=== PATIENT | male | born 1945 ===

== ENCOUNTER 2019-12-03 08:56 | Outpatient (REF) | payer OTHER, SELFPAY ==
[2019-12-03 09:07] LABS: Abs Immature Grans 0.06 10^3/uL (0.0-0.06); Absolute Basophil Count 0.01 10^3/uL (0.0-0.2); Absolute Eosinophil Count 0.07 10^3/uL (0.0-0.7); Absolute Lymphocyte Count 0.44 10^3/uL (1.2-3.4); Absolute Monocyte Count 0.49 10^3/uL (0.1-0.8); Absolute Neutrophil Count 4.68 10^3/uL (1.2-6.7); Basophils % 0.2; Eosinophils % 1.2; HCT 31.7 % (40.0-50.0); Lymphocytes % 7.7; MCH 29.2 pg (27.0-33.0); MCHC 31.5 % (32.0-36.0); MCV 92.7 fL (80-95); MPV 10.4 fL (8.0-11.0); Monocytes % 8.5; Neutrophils % 81.4; Nucleated RBC 0 %; Platelet Count 255 10^3/uL (130-400); RBC 3.42 10^6/uL (4.36-5.78); RDW 16.6 % (11.8-14.1); RDW-SD 55.4 fL; WBC 5.75 10^3/uL (4.4-10.8)
[2019-12-03 09:22] LABS: ALT 32 U/L (16-63); AST 56 U/L (15-37); Albumin 2.7 g/dL (3.4-5.0); Alkaline Phosphatase 192 U/L (46-116); Anion Gap 11.8 mmol/L (3-11); BUN 17 mg/dL (7-18); Bilirubin, Total 0.3 mg/dL (0.2-1.0); CO2 27.2 mmol/L (21.0-32.0); CREATININE 1.02 mg/dL (0.70-1.30); Calcium 9.4 mg/dL (8.5-10.1); Chloride 101 mmol/L (98-107); Glucose 116 mg/dL (74-106); Potassium 4.3 mmol/L (3.5-5.1); Sodium 140 mmol/L (136-145); Total Protein 7.1 g/dL (6.4-8.2)
== END 2019-12-03 09:16 ==
LOC: LBN 08:56
PROVIDERS: PCP Internal Medicine Medical Oncology; Visit Provider Internal Medicine Medical Oncology
DX: C34.12 Malignant neoplasm of upper lobe, left bronchus or lung (principal)
CPT/HCPCS: 80053; 85025

== ENCOUNTER 2019-12-16 04:52 | Outpatient (CLI) | payer OTHER, SELFPAY ==
[2019-12-16 10:49] LABS: Abs Immature Grans 0.04 10^3/uL (0.0-0.06); Absolute Basophil Count 0.02 10^3/uL (0.0-0.2); Absolute Eosinophil Count 0.16 10^3/uL (0.0-0.7); Absolute Lymphocyte Count 0.49 10^3/uL (1.2-3.4); Absolute Monocyte Count 0.46 10^3/uL (0.1-0.8); Absolute Neutrophil Count 4.57 10^3/uL (1.2-6.7); Basophils % 0.3; Eosinophils % 2.8; HCT 33.7 % (40.0-50.0); HGB 10.3 g/dL (13.5-17.5); Immature Grans % 0.7; Lymphocytes % 8.5; MCH 29.3 pg (27.0-33.0); MCHC 30.6 % (32.0-36.0); MPV 8.9 fL (8.0-11.0); Neutrophils % 79.7; Nucleated RBC 0 %; Platelet Count 189 10^3/uL (130-400); RBC 3.51 10^6/uL (4.36-5.78); RDW 18.8 % (11.8-14.1); RDW-SD 64.3 fL; WBC 5.74 10^3/uL (4.4-10.8)
[2019-12-16 11:11] LABS: ALT 22 U/L (16-63); AST 28 U/L (15-37); Alkaline Phosphatase 120 U/L (46-116); Anion Gap 8.3 mmol/L (3-11); BUN 13 mg/dL (7-18); Bilirubin, Total 0.2 mg/dL (0.2-1.0); CO2 30.7 mmol/L (21.0-32.0); CREATININE 0.86 mg/dL (0.70-1.30); Calcium 8.1 mg/dL (8.5-10.1); Chloride 106 mmol/L (98-107); FREE T4 1.18 ng/dL (0.76-1.46); Glucose 108 mg/dL (74-106); Magnesium 1.3 mg/dL (1.8-2.4); Potassium 3.8 mmol/L (3.5-5.1); Sodium 145 mmol/L (136-145); Total Protein 6.7 g/dL (6.4-8.2)
== END 2019-12-16 05:12 ==
PROVIDERS: PCP Internal Medicine Medical Oncology; Visit Provider Internal Medicine Medical Oncology
DX: C78.7 Secondary malignant neoplasm of liver and intrahepatic bile duct (principal)
CPT/HCPCS: 36415; 80053; 83735; 84439; 84443; 85025

== ENCOUNTER 2019-12-24 04:48 | Outpatient (CLI) | payer OTHER, SELFPAY ==
[2019-12-24 09:31] LABS: Abs Immature Grans 0.02 10^3/uL (0.0-0.06); Absolute Basophil Count 0.01 10^3/uL (0.0-0.2); Absolute Eosinophil Count 0.03 10^3/uL (0.0-0.7); Absolute Monocyte Count 0.36 10^3/uL (0.1-0.8); Basophils % 0.3; HCT 30.5 % (40.0-50.0); HGB 9.5 g/dL (13.5-17.5); Immature Grans % 0.7; Lymphocytes % 23.2; MCH 29.7 pg (27.0-33.0); MCHC 31.1 % (32.0-36.0); MCV 95.3 fL (80-95); MPV 10.1 fL (8.0-11.0); Monocytes % 11.9; Neutrophils % 62.9; Nucleated RBC 0 %; Platelet Count 165 10^3/uL (130-400); RDW-SD 61.7 fL; WBC 3.02 10^3/uL (4.4-10.8)
[2019-12-24 09:57] LABS: ALT 18 U/L (16-63); AST 25 U/L (15-37); Albumin 3.2 g/dL (3.4-5.0); Alkaline Phosphatase 84 U/L (46-116); BUN 15 mg/dL (7-18); Bilirubin, Total 0.3 mg/dL (0.2-1.0); CREATININE 0.85 mg/dL (0.70-1.30); Chloride 102 mmol/L (98-107); FREE T4 1.32 ng/dL (0.76-1.46); Glucose 107 mg/dL (74-106); Magnesium 1.5 mg/dL (1.8-2.4); Potassium 4.1 mmol/L (3.5-5.1); Sodium 140 mmol/L (136-145); TSH 1.63 uIU/mL (0.36-3.74); Total Protein 6.2 g/dL (6.4-8.2)
== END 2019-12-24 05:08 ==
PROVIDERS: PCP Internal Medicine Medical Oncology; Visit Provider Internal Medicine Medical Oncology
DX: C78.7 Secondary malignant neoplasm of liver and intrahepatic bile duct (principal)
CPT/HCPCS: 80053; 83735; 84439; 84443; 85025

== ENCOUNTER 2020-01-06 02:00 | Outpatient (CLI) | payer OTHER, SELFPAY ==
[2020-01-06 08:40] LABS: Abs Immature Grans 0.02 10^3/uL (0.0-0.06); Absolute Basophil Count 0.01 10^3/uL (0.0-0.2); Absolute Eosinophil Count 0.03 10^3/uL (0.0-0.7); Absolute Lymphocyte Count 0.58 10^3/uL (1.2-3.4); Absolute Monocyte Count 0.63 10^3/uL (0.1-0.8); Absolute Neutrophil Count 1.94 10^3/uL (1.2-6.7); Basophils % 0.3; Eosinophils % 0.9; HCT 31.7 % (40.0-50.0); HGB 9.8 g/dL (13.5-17.5); Immature Grans % 0.6; Lymphocytes % 18.1; MCH 29.7 pg (27.0-33.0); MCHC 30.9 % (32.0-36.0); MCV 96.1 fL (80-95); MPV 9.4 fL (8.0-11.0); Monocytes % 19.6; Neutrophils % 60.5; Nucleated RBC 0 %; RDW 20.4 % (11.8-14.1); RDW-SD 70.3 fL; WBC 3.21 10^3/uL (4.4-10.8)
[2020-01-06 08:58] LABS: ALT 25 U/L (16-63); AST 25 U/L (15-37); Albumin 3.1 g/dL (3.4-5.0); Alkaline Phosphatase 86 U/L (46-116); Anion Gap 8.7 mmol/L (3-11); BUN 12 mg/dL (7-18); Bilirubin, Total 0.3 mg/dL (0.2-1.0); CO2 29.3 mmol/L (21.0-32.0); CREATININE 0.75 mg/dL (0.70-1.30); Calcium 8.1 mg/dL (8.5-10.1); Chloride 105 mmol/L (98-107); FREE T4 1.29 ng/dL (0.76-1.46); Glucose 106 mg/dL (74-106); Magnesium 1.6 mg/dL (1.8-2.4); Potassium 3.4 mmol/L (3.5-5.1); Sodium 143 mmol/L (136-145); TSH 1.85 uIU/mL (0.36-3.74); Total Protein 6.5 g/dL (6.4-8.2)
[2020-01-06 09:21] LABS: Anisocytosis 2+; Diff Comment Diff Reviewed; Platelet Count 165 10^3/uL (130-400); Polychromasia Present
[2020-01-06 09:22] LABS: Poikilocytes 2+
== END 2020-01-06 02:20 ==
PROVIDERS: PCP Internal Medicine Medical Oncology; Visit Provider Internal Medicine Medical Oncology
DX: C78.7 Secondary malignant neoplasm of liver and intrahepatic bile duct (principal)
CPT/HCPCS: 36415; 80053; 83735; 84439; 84443; 85025

== ENCOUNTER 2020-01-13 02:37 | Outpatient (CLI) | payer OTHER, SELFPAY ==
[2020-01-13 07:35] LABS: Abs Immature Grans 0.01 10^3/uL (0.0-0.06); Absolute Basophil Count 0.02 10^3/uL (0.0-0.2); Absolute Eosinophil Count 0.01 10^3/uL (0.0-0.7); Absolute Lymphocyte Count 0.71 10^3/uL (1.2-3.4); Basophils % 0.6; Eosinophils % 0.3; HCT 28.4 % (40.0-50.0); Immature Grans % 0.3; Lymphocytes % 21.8; MCH 29.6 pg (27.0-33.0); MCHC 31.7 % (32.0-36.0); MCV 93.4 fL (80-95); MPV 9.8 fL (8.0-11.0); Monocytes % 9.2; Neutrophils % 67.8; Nucleated RBC 0 %; Platelet Count 174 10^3/uL (130-400); RBC 3.04 10^6/uL (4.36-5.78); RDW 19.7 % (11.8-14.1); RDW-SD 66.6 fL; WBC 3.25 10^3/uL (4.4-10.8)
[2020-01-13 07:52] LABS: ALT 21 U/L (16-63); AST 25 U/L (15-37); Albumin 3.3 g/dL (3.4-5.0); Alkaline Phosphatase 73 U/L (46-116); Anion Gap 4.5 mmol/L (3-11); BUN 18 mg/dL (7-18); Bilirubin, Total 0.4 mg/dL (0.2-1.0); CO2 32.5 mmol/L (21.0-32.0); Calcium 9.1 mg/dL (8.5-10.1); Chloride 103 mmol/L (98-107); FREE T4 1.28 ng/dL (0.76-1.46); Glucose 106 mg/dL (74-106); Magnesium 1.6 mg/dL (1.8-2.4); Potassium 4.8 mmol/L (3.5-5.1); Sodium 140 mmol/L (136-145); TSH 2.31 uIU/mL (0.36-3.74); Total Protein 6.7 g/dL (6.4-8.2)
== END 2020-01-13 02:57 ==
PROVIDERS: PCP Internal Medicine Medical Oncology; Visit Provider Internal Medicine Medical Oncology
DX: C78.7 Secondary malignant neoplasm of liver and intrahepatic bile duct (principal); Z79.899 Other long term (current) drug therapy
CPT/HCPCS: 80053; 83735; 84439; 84443; 85025

== ENCOUNTER 2020-01-27 01:30 | Outpatient (CLI) | payer OTHER, SELFPAY ==
[2020-01-27 08:23] LABS: Abs Immature Grans 0.02 10^3/uL (0.0-0.06); Absolute Basophil Count 0.01 10^3/uL (0.0-0.2); Absolute Eosinophil Count 0.01 10^3/uL (0.0-0.7); Absolute Lymphocyte Count 0.63 10^3/uL (1.2-3.4); Absolute Monocyte Count 0.79 10^3/uL (0.1-0.8); Basophils % 0.3; Eosinophils % 0.3; HCT 29.2 % (40.0-50.0); HGB 9.2 g/dL (13.5-17.5); Immature Grans % 0.6; Lymphocytes % 17.7; MCH 30.9 pg (27.0-33.0); MCHC 31.5 % (32.0-36.0); MPV 9.1 fL (8.0-11.0); Monocytes % 22.2; Neutrophils % 58.9; Nucleated RBC 0 %; Platelet Count 133 10^3/uL (130-400); RBC 2.98 10^6/uL (4.36-5.78); WBC 3.56 10^3/uL (4.4-10.8)
[2020-01-27 08:48] LABS: ALT 18 U/L (16-63); AST 22 U/L (15-37); Albumin 3.3 g/dL (3.4-5.0); Alkaline Phosphatase 74 U/L (46-116); Anion Gap 10.7 mmol/L (3-11); BUN 14 mg/dL (7-18); Bilirubin, Total 0.3 mg/dL (0.2-1.0); CO2 29.3 mmol/L (21.0-32.0); Calcium 8.5 mg/dL (8.5-10.1); Chloride 104 mmol/L (98-107); FREE T4 1.45 ng/dL (0.76-1.46); Glucose 104 mg/dL (74-106); Magnesium 1.7 mg/dL (1.8-2.4); Potassium 3.9 mmol/L (3.5-5.1); Sodium 144 mmol/L (136-145); TSH 1.97 uIU/mL (0.36-3.74); Total Protein 6.9 g/dL (6.4-8.2)
== END 2020-01-27 01:50 ==
PROVIDERS: PCP Internal Medicine Medical Oncology; Visit Provider Internal Medicine Medical Oncology
DX: C78.7 Secondary malignant neoplasm of liver and intrahepatic bile duct (principal)
CPT/HCPCS: 36415; 80053; 83735; 84439; 84443; 85025

== ENCOUNTER 2020-02-03 07:12 | Outpatient (CLI) | payer OTHER, SELFPAY ==
[2020-02-03 07:26] LABS: Abs Immature Grans 0.02 10^3/uL (0.0-0.06); Absolute Basophil Count 0.01 10^3/uL (0.0-0.2); Absolute Lymphocyte Count 0.71 10^3/uL (1.2-3.4); Absolute Monocyte Count 0.28 10^3/uL (0.1-0.8); Absolute Neutrophil Count 2.51 10^3/uL (1.2-6.7); Basophils % 0.3; HGB 8.8 g/dL (13.5-17.5); Immature Grans % 0.6; Lymphocytes % 20.1; MCH 30.4 pg (27.0-33.0); MCHC 31.4 % (32.0-36.0); MCV 96.9 fL (80-95); MPV 9.4 fL (8.0-11.0); Monocytes % 7.9; Neutrophils % 71.1; Nucleated RBC 0 %; RBC 2.89 10^6/uL (4.36-5.78); RDW-SD 74.5 fL; WBC 3.53 10^3/uL (4.4-10.8)
[2020-02-03 07:38] LABS: Anisocytosis 2+; Basophilic Stippling Present; Diff Comment Diff Reviewed; Hypochromasia 2+; Platelet Count 101 10^3/uL (130-400)
[2020-02-03 07:39] LABS: Poikilocytes 2+
[2020-02-03 07:50] LABS: ALT 14 U/L (16-63); AST 21 U/L (15-37); Albumin 3.3 g/dL (3.4-5.0); Alkaline Phosphatase 79 U/L (46-116); Anion Gap 6.6 mmol/L (3-11); BUN 21 mg/dL (7-18); Bilirubin, Total 0.4 mg/dL (0.2-1.0); CO2 30.4 mmol/L (21.0-32.0); CREATININE 0.95 mg/dL (0.70-1.30); Calcium 8.9 mg/dL (8.5-10.1); Chloride 104 mmol/L (98-107); FREE T4 1.32 ng/dL (0.76-1.46); Glucose 120 mg/dL (74-106); Magnesium 1.6 mg/dL (1.8-2.4); Potassium 4.1 mmol/L (3.5-5.1); Sodium 141 mmol/L (136-145); TSH 1.38 uIU/mL (0.36-3.74); Total Protein 6.6 g/dL (6.4-8.2)
== END 2020-02-03 07:32 ==
PROVIDERS: PCP Internal Medicine Medical Oncology; Visit Provider Internal Medicine Medical Oncology
DX: C78.7 Secondary malignant neoplasm of liver and intrahepatic bile duct (principal); Z79.899 Other long term (current) drug therapy
CPT/HCPCS: 36415; 80053; 83735; 84439; 84443; 85025

== ENCOUNTER 2020-02-17 03:04 | Outpatient (CLI) | payer OTHER, SELFPAY ==
[2020-02-17 08:53] LABS: Abs Immature Grans 0.03 10^3/uL (0.0-0.06); Absolute Basophil Count 0.02 10^3/uL (0.0-0.2); Absolute Eosinophil Count 0.02 10^3/uL (0.0-0.7); Absolute Lymphocyte Count 0.62 10^3/uL (1.2-3.4); Absolute Monocyte Count 0.77 10^3/uL (0.1-0.8); Absolute Neutrophil Count 1.76 10^3/uL (1.2-6.7); Basophils % 0.6; Eosinophils % 0.6; HCT 27.1 % (40.0-50.0); HGB 8.5 g/dL (13.5-17.5); Immature Grans % 0.9; Lymphocytes % 19.3; MCH 31.4 pg (27.0-33.0); MCHC 31.4 % (32.0-36.0); MPV 9.2 fL (8.0-11.0); Monocytes % 23.9; Neutrophils % 54.7; Nucleated RBC 0 %; Platelet Count 140 10^3/uL (130-400); RBC 2.71 10^6/uL (4.36-5.78); RDW 22.5 % (11.8-14.1); WBC 3.22 10^3/uL (4.4-10.8)
[2020-02-17 09:12] LABS: Anisocytosis 2+; Diff Comment RBC Morph Reviewed; Macrocytosis 1+; Microcytosis 1+; Ovalocytes 2+; Polychromasia Present
[2020-02-17 09:20] LABS: ALT 19 U/L (16-63); AST 21 U/L (15-37); Albumin 3.3 g/dL (3.4-5.0); Alkaline Phosphatase 85 U/L (46-116); Anion Gap 5.8 mmol/L (3-11); BUN 19 mg/dL (7-18); Bilirubin, Total 0.3 mg/dL (0.2-1.0); CO2 30.2 mmol/L (21.0-32.0); CREATININE 0.86 mg/dL (0.70-1.30); Calcium 8.7 mg/dL (8.5-10.1); Chloride 107 mmol/L (98-107); Glucose 117 mg/dL (74-106); Magnesium 1.8 mg/dL (1.8-2.4); Potassium 3.9 mmol/L (3.5-5.1); Sodium 143 mmol/L (136-145); TSH 0.91 uIU/mL (0.36-3.74); Total Protein 6.8 g/dL (6.4-8.2)
== END 2020-02-17 03:24 ==
PROVIDERS: PCP Internal Medicine Medical Oncology; Visit Provider Internal Medicine Medical Oncology
DX: C78.7 Secondary malignant neoplasm of liver and intrahepatic bile duct (principal)
CPT/HCPCS: 36415; 80053; 83735; 84443; 85025

== ENCOUNTER 2020-03-16 03:15 | Outpatient (CLI) | payer OTHER, SELFPAY ==
[2020-03-16 09:31] LABS: Abs Immature Grans 0.16 10^3/uL (0.0-0.06); Absolute Basophil Count 0.03 10^3/uL (0.0-0.2); Absolute Eosinophil Count 0.03 10^3/uL (0.0-0.7); Absolute Neutrophil Count 10.81 10^3/uL (1.2-6.7); Basophils % 0.2; Eosinophils % 0.2; HCT 32.5 % (40.0-50.0); Immature Grans % 1.2; Lymphocytes % 7.5; MCH 31.3 pg (27.0-33.0); MCHC 30.8 % (32.0-36.0); MCV 101.9 fL (80-95); MPV 8.8 fL (8.0-11.0); Neutrophils % 80.9; Nucleated RBC 0 %; Platelet Count 274 10^3/uL (130-400); RBC 3.19 10^6/uL (4.36-5.78); RDW 18.2 % (11.8-14.1); WBC 13.36 10^3/uL (4.4-10.8)
[2020-03-16 09:34] LABS: Absolute Monocyte Count 1.34 10^3/uL (0.1-0.8)
[2020-03-16 09:53] LABS: ALT 72 U/L (16-63); AST 64 U/L (15-37); Albumin 3.3 g/dL (3.4-5.0); Alkaline Phosphatase 246 U/L (46-116); Anion Gap 9.3 mmol/L (3-11); BUN 28 mg/dL (7-18); Bilirubin, Total 0.4 mg/dL (0.2-1.0); CO2 28.7 mmol/L (21.0-32.0); CREATININE 1.12 mg/dL (0.70-1.30); Calcium 9.4 mg/dL (8.5-10.1); Chloride 105 mmol/L (98-107); FREE T4 2.02 ng/dL (0.76-1.46); Glucose 118 mg/dL (74-106); Magnesium 1.8 mg/dL (1.8-2.4); Potassium 4.3 mmol/L (3.5-5.1); Sodium 143 mmol/L (136-145); TSH 0.07 uIU/mL (0.36-3.74); Total Protein 7.4 g/dL (6.4-8.2)
== END 2020-03-16 03:35 ==
PROVIDERS: PCP Internal Medicine Medical Oncology; Visit Provider Internal Medicine Medical Oncology
DX: C78.7 Secondary malignant neoplasm of liver and intrahepatic bile duct (principal)
CPT/HCPCS: 36415; 80053; 83735; 84439; 84443; 85025

== ENCOUNTER 2020-04-06 13:28 | Outpatient (CLI) | payer OTHER, SELFPAY ==
[2020-04-06 13:53] LABS: Abs Immature Grans 0.46 10^3/uL (0.0-0.06); Absolute Basophil Count 0.06 10^3/uL (0.0-0.2); Basophils % 0.2; HCT 35.2 % (40.0-50.0); HGB 11.3 g/dL (13.5-17.5); Immature Grans % 1.6; Lymphocytes % 3.1; MCH 31.7 pg (27.0-33.0); MCHC 32.1 % (32.0-36.0); MCV 98.6 fL (80-95); MPV 10.1 fL (8.0-11.0); Monocytes % 6.4; Nucleated RBC 0 %; Platelet Count 263 10^3/uL (130-400); RBC 3.57 10^6/uL (4.36-5.78); RDW 18.4 % (11.8-14.1); RDW-SD 66.6 fL
[2020-04-06 14:09] LABS: ALT 176 U/L (16-63); AST 245 U/L (15-37); Albumin 2.8 g/dL (3.4-5.0); Alkaline Phosphatase 646 U/L (46-116); Anion Gap 12.2 mmol/L (3-11); BUN 33 mg/dL (7-18); Bilirubin, Total 2.3 mg/dL (0.2-1.0); CO2 22.8 mmol/L (21.0-32.0); CREATININE 1.42 mg/dL (0.70-1.30); Calcium 9.5 mg/dL (8.5-10.1); Chloride 101 mmol/L (98-107); Estimated GFR 48.87 (mL/min/1.73m2); FREE T4 1.14 ng/dL (0.76-1.46); Glucose 93 mg/dL (74-106); Magnesium 2.1 mg/dL (1.8-2.4); Potassium 5.1 mmol/L (3.5-5.1); Sodium 136 mmol/L (136-145); TSH 4.34 uIU/mL (0.36-3.74); Total Protein 7.1 g/dL (6.4-8.2)
[2020-04-06 14:12] LABS: Absolute Lymphocyte Count 0.89 10^3/uL (1.2-3.4); Absolute Monocyte Count 1.83 10^3/uL (0.1-0.8); Absolute Neutrophil Count 25.39 10^3/uL (1.2-6.7); WBC 28.63 10^3/uL (4.4-10.8)
[2020-04-06 14:13] LABS: Diff Comment Manual Differential; Neutrophils % 88.7; RBC Morphology Normal
== END 2020-04-06 13:48 ==
PROVIDERS: PCP Internal Medicine Medical Oncology; Visit Provider Internal Medicine Medical Oncology
DX: C78.7 Secondary malignant neoplasm of liver and intrahepatic bile duct (principal); Z79.899 Other long term (current) drug therapy
CPT/HCPCS: 36415; 80053; 83735; 84439; 84443; 85025